=== PATIENT | male | born 1955 | race Two or more races ===

== ENCOUNTER 2021-02-12 01:52 | Emergency (ER) | payer BC ==
[~2021-02-12] VITALS: Ht 180.3 cm; Wt 100.2 kg
[2021-02-12] MEDS ORDERED: PEPCID AC20 MG PO (05:34)
[2021-02-12] MEDS ORDERED: BACTRIM DS TAB1 EACH PO (05:34)
== END 2021-02-12 06:14 | disposition home or self-care (01) ==
LOC: ER 01:52
DX: K29.60 Other gastritis without bleeding (principal); R10.13 Epigastric pain